=== PATIENT | female | born 1945 | race Caucasian/White ===

== ENCOUNTER → 2017-03-28 | Outpatient (CLI) | payer MEDICARE, OTHER | LOC: RT 08:00 | PROVIDERS: ATTEND Internal Medicine Cardiovascular Disease | DX: I48.0 Paroxysmal atrial fibrillation (principal) | CPT/HCPCS: 93005 ==

== ENCOUNTER 2017-04-07 14:51 | Outpatient (CLI) | payer MEDICARE, OTHER | END 2017-04-07 14:52 | disposition home or self-care (01) | LOC: RT.S 14:51 | PROVIDERS: ATTEND Internal Medicine Cardiovascular Disease | DX: I48.0 Paroxysmal atrial fibrillation (principal) | CPT/HCPCS: 93005 ==

== ENCOUNTER 2017-04-28 15:25 | Outpatient (CLI) | payer MEDICARE, OTHER | END 2017-04-28 15:26 | disposition critical access hospital (66) | LOC: EMS 15:25 | PROVIDERS: ATTEND Surgery | DX: R55 Syncope and collapse (principal) | CPT/HCPCS: A0425; A0427 ==

== ENCOUNTER 2017-04-28 16:08 | Inpatient (IN) | payer MEDICARE, OTHER ==
--- NOTE | 2017-04-28 16:46 | ED Physician Documentation ---
PD HPI SYNCOPE - Stated complaint Stated Complaint: AFIB - Chief complaint Chief Complaint: General - History obtained from History obtained from: Patient, Family, EMS - History of Present Illness Witnessed: Witnessed Timing - onset: Today Duration: Minutes (3-4) Preceding symptoms: None Associated symptoms: No: Seizure, Incontinant of urine, Incontinant of stool, Headache, Vision changes, Chest pain, Palpitations, Diaphoresis, Dyspnea, Nausea / vomiting Contributing factors: Recent med change (metoprolol increased 2 weeks ago) Injury occurred: No: Fell, Head injury, Neck injury Pain level max: 0 Pain level now: 0 Similar symptoms before: Diagnosis (one syncopal event in the past. states vasovagal.) Recently seen: Not recently seen - Additional information Additional information: Patient is a 71-year-old female who presents to the emergency department after getting up from a nap today, feeling slightly lightheaded at that time. Went into the kitchen with her was sitting at a chair when she had a syncopal event. This lasted 3-4 minutes. No prodrome. Has only passed out once before. She recently had her metoprolol increased. Review of Systems Ten Systems: 10 systems reviewed and negative Constitutional: denies: Fever, Chills Nose: denies: Rhinorrhea / runny nose, Congestion Throat: denies: Sore throat Cardiac: denies: Chest pain / pressure Respiratory: denies: Dyspnea, Cough GI: denies: Nausea, Vomiting, Diarrhea : denies: Dysuria Skin: denies: Rash Musculoskeletal: denies: Neck pain, Back pain Neurologic: denies: Focal weakness, Numbness, Headache PD PAST MEDICAL HISTORY - Past Medical History Past Medical History: Yes Cardiovascular: Hypertension, Atrial fibrillation Endocrine/Autoimmune: HyPOthyroidism - Past Surgical History Past Surgical History: Yes General: Cholecystectomy Ortho: Carpal Tunnel 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 - Present Medications Home Medications: Ambulatory Orders Medication Instructions Recorded Confirmed Levothyroxine [Synthroid] 50 mcg PO DAILY 05/05/14 04/28/17 Apixaban [Eliquis] 5 mg PO BID 04/28/17 04/28/17 Furosemide [Lasix] 20 mg PO DAILY 04/28/17 04/28/17 Lisinopril 2.5 mg PO DAILY 04/28/17 04/28/17 Metoprolol Tartrate 100 mg PO BID 04/28/17 04/28/17 Sotalol HCl [Sotalol AF] 120 mg PO BID 04/28/17 04/28/17 - Allergies Allergies/Adverse Reactions: Allergies Allergy/AdvReac Type Severity Reaction Status Date / Time amoxicillin Allergy Hives Verified 04/28/17 19:23 - Living Situation Living Situation: reports: With family Living Arrangement: reports: At home - Social History Does the pt smoke?: No Smoking Status: Never smoker Does the pt drink ETOH?: Yes Does the pt have substance abuse?: No - Family History Family history: reports: Non contributory - Immunizations Immunizations are current?: Yes PD ED PE NORMAL - Vitals Vital signs reviewed: Yes - General General: Alert and oriented X 3, Well developed/nourished - HEENT HEENT: PERRL, Moist mucous membranes - Neck Neck: Supple, no meningeal sign - Cardiac Cardiac: Strong equal pulses, Other (irregularly irregular) - Respiratory Respiratory: No respiratory distress, Clear bilaterally - Abdomen Abdomen: Soft, Non tender, Non distended - Back Back: No spinal TTP - Derm Derm: Warm and dry, No rash - Extremities Extremities: No edema, No calf tenderness / cord - Neuro Neuro: Alert and oriented X 3 - Psych Psych: Normal mood, Normal affect Results - Vitals Vitals: Vital Signs - 24 hr 04/28/17 04/28/17 04/28/17 16:14 17:43 17:46 Temperature 36.9 C Heart Rate 126 H 123 H 94 Respiratory 14 16 Rate Blood Pressure 114/66 116/73 91/47 L O2 Saturation 99 97 04/28/17 04/28/17 18:11 19:11 Temperature Heart Rate 90 94 Respiratory 20 Rate Blood Pressure 103/63 122/78 O2 Saturation 100 97 Oxygen O2 Source Room air - EKG (time done) 1651 Rate: Rate (enter#) (143) Rhythm: Atrial fibrillation (w RVR) [place]: Normal QRS: Normal Ischemia: Non specific changes Computer interpretation: Agree with computer - Labs Labs: Laboratory Tests 04/28/17 04/28/17 04/28/17 16:36 16:36 16:36 WBC 5.8 RBC 4.16 L Hgb 14.7 Hct 43.9 MCV 105.6 H MCH 35.3 H MCHC 33.4 RDW 13.4 Plt Count 158 MPV 8.2 Neut # 3.5 Lymph # 1.7 [place] # 0.4 Eos # 0.1 Baso # 0.1 Absolute Nucleated RBC 0.00 Nucleated RBCs 0.0 Sodium 143 Potassium 4.4 Chloride 108 Carbon Dioxide 25 Anion Gap 10.0 BUN 22 H Creatinine 0.7 Estimated GFR (MDRD) 83 L Glucose 88 Calcium 9.3 Phosphorus Magnesium Total Bilirubin 0.8 AST 80 H ALT 36 Alkaline Phosphatase 66 Troponin I < 0.04 Total Protein 7.7 Albumin 4.1 Globulin 3.6 Albumin/Globulin Ratio 1.1 Lipase 46 Urine Color Urine Clarity Urine pH Ur Specific [place] Urine Protein Urine Glucose (UA) Urine Ketones Urine Occult Blood Urine Nitrite Urine Bilirubin Urine Urobilinogen Ur Leukocyte Esterase Ur Microscopic Review Urine Culture Comments Ethyl Alcohol 143.1 04/28/17 04/28/17 16:36 16:43 WBC RBC Hgb Hct MCV MCH MCHC RDW Plt Count MPV Neut # Lymph # [place] # Eos # Baso # Absolute Nucleated RBC Nucleated RBCs Sodium Potassium Chloride Carbon Dioxide Anion Gap BUN Creatinine Estimated GFR (MDRD) Glucose Calcium Phosphorus 3.2 Magnesium 1.6 L Total Bilirubin AST ALT Alkaline Phosphatase Troponin I Total Protein Albumin Globulin Albumin/Globulin Ratio Lipase Urine Color YELLOW Urine Clarity CLEAR Urine pH 6.0 Ur Specific [place] 1.010 Urine Protein NEGATIVE Urine Glucose (UA) NEGATIVE Urine Ketones NEGATIVE Urine Occult Blood TRACE-LYSE Urine Nitrite NEGATIVE Urine Bilirubin NEGATIVE Urine Urobilinogen 0.2 (NORMAL) Ur Leukocyte Esterase NEGATIVE Ur Microscopic Review NOT INDICATED Urine Culture Comments NOT INDICATED Ethyl Alcohol - Rads (name of study) cxr Radiology: Prelim report reviewed, EMP read contemporaneously, See rad report ( normal) PD MEDICAL DECISION MAKING - ED course Complexity details: reviewed results, re-evaluated patient, considered differential, d/w patient, d/w family, d/w automotive consultant ED course: Patient is a 71-year-old female who presents to the emergency department after a syncopal event today. States she was unconscious for 3-4 minutes. No prodrome. She does drink alcohol nightly, but states had no alcohol today. She does have a nearly double the legal limit blood alcohol level here. She is also on sotalol, concerned that she could potentially have a lethal arrhythmia causing her syncopal events. Discussed the case with the hospitalist will place the patient on telemetry in the hospital. This document was made in part using voice recognition software. While efforts are made to proofread this document, sound alike and grammatical errors may occur. Atrial fibrillation with rapid ventricular response greatly improved with Cardizem. Departure - Departure Disposition: 66 [facility] DC/Xfer Clinical Impression: Atrial fibrillation with RVR Syncope Qualifiers: Syncope type: unspecified Qualified Code(s): R55 - Syncope and collapse Cardiomyopathy Qualifiers: Cardiomyopathy type: unspecified Qualified Code(s): I42.9 - Cardiomyopathy, unspecified Condition: Good Discharge Date/Time: 04/28/17 20:30
[2017-04-28 16:57] LABS: ALBUMIN/GLOBULIN RATIO 1.1 (1.0-2.2); BILIRUBIN,TOTAL 0.8 mg/dL (0.2-1.0); CALCIUM 9.3 mg/dL (8.5-10.3); CREATININE 0.7 mg/dL (0.4-1.0); POTASSIUM 4.4 mmol/L (3.5-5.0); TOTAL PROTEIN 7.7 g/dL (6.7-8.2)
[2017-04-28 17:09] LABS: BILIRUBIN,URINE NEGATIVE (NEGATIVE); UA CHARGE (STRIP ONLY) YES; UR CULTURE IF IND NOT INDICATED
[2017-04-28 17:16] LABS: BASOPHILS # (AUTO) 0.1 10^3/uL (0.0-0.1); BASOPHILS % (AUTO) 0.9 %; EOSINOPHILS # (AUTO) 0.1 10^3/uL (0.0-0.7); EOSINOPHILS % (AUTO) 2.2 %; HCT - HEMATOCRIT 43.9 % (37.0-47.0); HGB - HEMOGLOBIN 14.7 g/dL (12.0-16.0); LYMPHOCYTES # (AUTO) 1.7 10^3/uL (1.5-3.5); LYMPHOCYTES % (AUTO) 29.5 %; MEAN CORPUSCULAR HEMOGLOBIN 35.3 pg (27.0-31.0); MEAN CORPUSCULAR HGB CONC 33.4 g/dL (32.0-36.0); MEAN CORPUSCULAR VOLUME 105.6 fL (81.0-99.0); MEAN PLATELET VOLUME 8.2 fL (7.9-10.8); MONOCYTES # (AUTO) 0.4 10^3/uL (0.0-1.0); MONOCYTES % (AUTO) 7.2 %; NEUTROPHILS # (AUTO) 3.5 10^3/uL (1.5-6.6); NEUTROPHILS % (AUTO) 60.2 %; RED BLOOD COUNT 4.16 10^6/uL (4.20-5.40); RED CELL DISTRIBUTION WIDTH 13.4 % (12.0-15.0); UNCORRECTED WHITE BLOOD COUNT 5.8 x10^3/uL; WHITE BLOOD COUNT 5.8 x10^3/uL (4.8-10.8)
--- NOTE | 2017-04-28 17:19 | XRAY Preliminary Report ---
Exam: XR Chest 1 View IMPRESSION: Normal single view chest. [facility] SITE ID: [id number]
--- NOTE | 2017-04-28 17:21 | XRAY Report ---
EXAM: CHEST RADIOGRAPHY EXAM DATE: 04/28/2017 05:03 PM. CLINICAL HISTORY: Syncope. COMPARISON: 12/23/2012. TECHNIQUE: 1 view. FINDINGS: Lungs/Pleura: No focal opacities evident. No pleural effusion. No pneumothorax. Mediastinum: Within exam limitations, cardiomediastinal contour is normal. Other: None. IMPRESSION: Normal single view chest. [facility] Referring Provider Line: [phone] SITE ID: [id number]
[2017-04-28] MEDS ORDERED: diltiaZEM INJ 5 MG/ML VIAL IVP STA (17:22)
[2017-04-28] MEDS ORDERED: SODIUM CHLORIDE 0.9% 1,000 ML IV ONE ×2 (17:29)
[2017-04-28] MEDS ORDERED: diltiaZEM INJ 5 MG/ML VIAL ONE (17:36)
[2017-04-28 17:56] LABS: MAGNESIUM 1.6 mg/dL (1.7-2.8); PHOSPHORUS 3.2 mg/dL (2.5-4.6)
[2017-04-28] MEDS ORDERED: LORazepam 0.5 MG TABLET PO PRN (20:19)
[2017-04-28] MEDS ORDERED: SODIUM CHLORIDE FLUSH 0.9% 10 ML SYRINGE IVP ONE (21:12)
[2017-04-28] MEDS: METOPROLOL TARTRATE 50 MG TABLET PO SCH (21:15)
[2017-04-28] MEDS ORDERED: APIXABAN 2.5 MG TABLET PO ONE (21:28)
[2017-04-29] MEDS: LEVOTHYROXINE 25 MCG TABLET PO SCH (06:03)
[2017-04-29 06:36] LABS: BASOPHILS % (AUTO) 0.8 %; EOSINOPHILS # (AUTO) 0.1 10^3/uL (0.0-0.7); HCT - HEMATOCRIT 42.7 % (37.0-47.0); HGB - HEMOGLOBIN 14.3 g/dL (12.0-16.0); LYMPHOCYTES # (AUTO) 1.4 10^3/uL (1.5-3.5); LYMPHOCYTES % (AUTO) 27.4 %; MEAN CORPUSCULAR HEMOGLOBIN 35.2 pg (27.0-31.0); MEAN CORPUSCULAR HGB CONC 33.5 g/dL (32.0-36.0); MEAN CORPUSCULAR VOLUME 105.2 fL (81.0-99.0); MONOCYTES # (AUTO) 0.5 10^3/uL (0.0-1.0); MONOCYTES % (AUTO) 10.1 %; NEUTROPHILS % (AUTO) 59.7 %; RED BLOOD COUNT 4.06 10^6/uL (4.20-5.40); RED CELL DISTRIBUTION WIDTH 13.1 % (12.0-15.0); UNCORRECTED WHITE BLOOD COUNT 5.1 x10^3/uL; WHITE BLOOD COUNT 5.1 x10^3/uL (4.8-10.8)
[2017-04-29 06:45] LABS: CALCIUM 8.8 mg/dL (8.5-10.3); CREATININE 0.6 mg/dL (0.4-1.0); MAGNESIUM 1.6 mg/dL (1.7-2.8); POTASSIUM 4.2 mmol/L (3.5-5.0)
[2017-04-29] MEDS: METOPROLOL TARTRATE 50 MG TABLET PO SCH ×2 (08:05→20:12)
[2017-04-29] MEDS: APIXABAN 2.5 MG TABLET PO SCH ×2 (08:05→20:12)
[2017-04-29] MEDS: diltiaZEM CD 120 MG CAPSULE PO SCH (09:40)
[2017-04-29] MEDS ORDERED: MAGNESIUM SULFATE 2 GRAM 50 ML IV SCH (18:00)
--- NOTE | 2017-04-29 18:11 | PROVIDER PROGRESS NOTE ---
Assessment/Plan - Problem List (1) Syncope Qualifiers: Syncope type: unspecified Qualified Code(s): R55 - Syncope and collapse Assessment/Plan: Echo showed normal LVEF, moderate pulmonary HTN with PA pressure 52 mmHg (and Pt never smoked). [place] has been ruled out with normal trops x 3. No orthostatic VS available yet. I will try to contact her Case Fitter re: recent med changes and plan. Assess for symptoms with ambulation if no orthostasis present. Replace Mg. (2) Atrial fibrillation with RVR Assessment/Plan: I will try to contact Pt's Case Fitter re: this event and the antiarrhythmics she was on (high doses of B-lucia + high dose of Sotalol ). Continue B-lucia and Cardizem and adjust dose carefully for rate control. Continue telemetry. (3) Alcohol abuse Assessment/Plan: Long-term Hx of this is suspected, given her high AST/ALT ratio, hypomagnesemia and elevated MCV. Pt has not shown evidence of DTs or withdrawal. Continue to monitor. (4) Pulmonary HTN Assessment/Plan: A VQ scan could be considered to check for PE, since she never smoked, as a PE could have caused syncope, however this has very low probability since the Pt has no SOB or Hx of recent travel and unlikely if she is fully anticoagulated on Eliquis, unless Pt was not compliant with her Eliquis. She may have had 2nd hand smoke exposure or have primary pulmonary HTN, which can be evaluated as an outpatient, since she has no respiratory complaints currently. - Current Meds Current Meds: Current Medications Generic Name Dose Route Start Last Admin Trade Name Giovany PRN Reason Stop Dose Admin Apixaban 5 mg 04/29/17 09:00 04/29/17 08:05 Eliquis PO 5 mg BID ANDERSON Administration Diltiazem HCl 120 mg 04/29/17 10:00 04/29/17 09:40 Cardizem Cd PO 120 mg DAILY ANDERSON Administration Magnesium Sulfate 50 mls @ 50 mls/hr 04/29/17 18:00 04/29/17 17:47 Magnesium Sulfate IV 04/29/17 19:00 50 mls/hr ONCE ANDERSON Administration Levothyroxine Sodium 50 mcg 04/29/17 07:00 04/29/17 06:03 Synthroid PO 50 mcg QDAC ANDERSON Administration Lorazepam 0.5 mg 04/28/17 20:19 04/29/17 00:04 Ativan PO 0.5 mg Q6H PRN Administration Alcohol Withdrawal Metoprolol Tartrate 100 mg 04/28/17 21:00 04/29/17 08:05 Lopressor PO 100 mg BID ANDERSON Administration - Lab Result Fish Bone Diagrams: 04/29/17 06:24 04/30/17 03:40 - Additional Planning My Orders: My Active Orders 04/28/17 19:55 Telemetry (24 Hour) [RC] Q4HR 04/28/17 20:17 Miscellaenous Nursing Order [RC] QSHIFT 04/28/17 20:19 LORazepam [Ativan] 0.5 mg PO Q6H PRN 04/28/17 21:00 Metoprolol Tartrate [Lopressor] 100 mg PO BID 04/29/17 07:00 Levothyroxine [Synthroid] 50 mcg PO QDAC 04/29/17 09:00 Echo Transthoracic Complete [ECHO] Routine Apixaban [Eliquis] 5 mg PO BID 04/29/17 10:00 [id number] CD [Cardizem Cd] 120 mg PO DAILY 04/29/17 18:00 Magnesium Sulfate 2 Gram [Magnesium Sulfate] 50 ml IV ONCE 04/29/17 Breakfast DIET [Regular Diet] [DIET] Objective Vital Signs: Vital Signs - 24 hr 04/28/17 04/28/17 04/28/17 20:15 20:45 21:00 Temperature 36.8 C Heart Rate 103 H Heart Rate [ 130 H 112 H Monitoring electrodes] Respiratory 16 18 17 Rate Blood Pressure 116/67 Blood Pressure 129/102 H 108/74 [Right Brachial artery] O2 Saturation 98 97 97 04/28/17 04/28/17 04/28/17 21:15 21:30 22:00 Temperature Heart Rate Heart Rate [ 103 H 109 H 102 H Monitoring electrodes] Respiratory 16 17 21 Rate Blood Pressure 108/74 Blood Pressure 143/81 H 124/86 H 142/118 H [Right Brachial artery] O2 Saturation 97 97 97 04/28/17 04/28/17 04/29/17 22:24 23:18 00:00 Temperature 36.6 C 97.8 C H 35.9 C L Heart Rate Heart Rate [ 113 H 113 H 108 H Monitoring electrodes] Respiratory 22 21 17 Rate Blood Pressure Blood Pressure 136/94 H 128/85 H 128/94 H [Right Brachial artery] O2 Saturation 99 97 98 04/29/17 04/29/17 04/29/17 01:00 02:00 03:00 Temperature Heart Rate Heart Rate [ 105 H 110 H 108 H Monitoring electrodes] Respiratory 17 15 16 Rate Blood Pressure Blood Pressure 105/80 109/80 118/79 [Right Brachial artery] O2 Saturation 97 98 97 04/29/17 04/29/17 04/29/17 04:00 05:00 06:00 Temperature 37.2 C Heart Rate Heart Rate [ 103 H 99 101 H Monitoring electrodes] Respiratory 17 17 10 L Rate Blood Pressure Blood Pressure 88/72 L 115/79 121/88 H [Right Brachial artery] O2 Saturation 98 98 98 04/29/17 04/29/17 04/29/17 07:00 08:00 08:05 Temperature Heart Rate Heart Rate [ 81 80 Monitoring electrodes] Respiratory 18 16 Rate Blood Pressure 122/97 H Blood Pressure 129/86 H 122/97 H [Right Brachial artery] O2 Saturation 100 95 04/29/17 04/29/17 12:00 16:00 Temperature 37.0 C 36.6 C Heart Rate Heart Rate [ 100 99 Monitoring electrodes] Respiratory 14 21 Rate Blood Pressure Blood Pressure 115/85 H 114/87 H [Right Brachial artery] O2 Saturation 93 99 Oxygen O2 Source Room air I&O (Last 24 Hrs): Intake and Output Totals x24h 04/27/17 04/28/17 04/29/17 23:59 23:59 23:59 Intake Total 300 2520 Output Total 200 970 Balance 100 1550 - Results Results: Laboratory Results WBC 5.1 x10^3/uL (4.8-10.8) 04/29/17 06:24 RBC 4.06 10^6/uL (4.20-5.40) L 04/29/17 06:24 Hgb 14.3 g/dL (12.0-16.0) 04/29/17 06:24 Hct 42.7 % (37.0-47.0) 04/29/17 06:24 MCV 105.2 fL (81.0-99.0) H 04/29/17 06:24 MCH 35.2 pg (27.0-31.0) H 04/29/17 06:24 MCHC 33.5 g/dL (32.0-36.0) 04/29/17 06:24 RDW 13.1 % (12.0-15.0) 04/29/17 06:24 Plt Count 148 10^3/uL (130-450) 04/29/17 06:24 MPV 8.0 fL (7.9-10.8) 04/29/17 06:24 Neut # 3.0 10^3/uL (1.5-6.6) 04/29/17 06:24 Lymph # 1.4 10^3/uL (1.5-3.5) L 04/29/17 06:24 [place] # 0.5 10^3/uL (0.0-1.0) 04/29/17 06:24 Eos # 0.1 10^3/uL (0.0-0.7) 04/29/17 06:24 Baso # 0.0 10^3/uL (0.0-0.1) 04/29/17 06:24 Absolute Nucleated RBC 0.00 x10^3/uL 04/29/17 06:24 Nucleated RBCs 0.0 /100WBC 04/29/17 06:24 Sodium 140 mmol/L (135-145) 04/29/17 06:24 Potassium 4.2 mmol/L (3.5-5.0) 04/29/17 06:24 Chloride 107 mmol/L (101-111) 04/29/17 06:24 Carbon Dioxide 24 mmol/L (21-32) 04/29/17 06:24 Anion Gap 9.0 (6-13) 04/29/17 06:24 BUN 20 mg/dL (6-20) 04/29/17 06:24 Creatinine 0.6 mg/dL (0.4-1.0) 04/29/17 06:24 Estimated GFR (MDRD) 99 (>89) 04/29/17 06:24 Glucose 89 mg/dL (70-100) 04/29/17 06:24 Calcium 8.8 mg/dL (8.5-10.3) 04/29/17 06:24 Phosphorus 3.2 mg/dL (2.5-4.6) 04/28/17 16:36 Magnesium 1.6 mg/dL (1.7-2.8) L 04/29/17 06:24 Total Bilirubin 0.8 mg/dL (0.2-1.0) 04/28/17 16:36 AST 80 IU/L (10-42) H 04/28/17 16:36 ALT 36 IU/L (10-60) 04/28/17 16:36 Alkaline Phosphatase 66 IU/L (42-121) 04/28/17 16:36 Troponin I < 0.04 ng/mL (<0.49) 04/29/17 06:24 Total Protein 7.7 g/dL (6.7-8.2) 04/28/17 16:36 Albumin 4.1 g/dL (3.2-5.5) 04/28/17 16:36 Globulin 3.6 g/dL (2.1-4.2) 04/28/17 16:36 Albumin/Globulin Ratio 1.1 (1.0-2.2) 04/28/17 16:36 Lipase 46 U/L (22-51) 04/28/17 16:36 TSH 3.87 uIU/mL (0.34-5.60) 04/29/17 06:24 Urine Color YELLOW 04/28/17 16:43 Urine Clarity CLEAR (CLEAR) 04/28/17 16:43 Urine pH 6.0 PH (5.0-7.5) 04/28/17 16:43 Ur Specific [place] 1.010 (1.002-1.030) 04/28/17 16:43 Urine Protein NEGATIVE mg/dL (NEGATIVE) 04/28/17 16:43 Urine Glucose (UA) NEGATIVE mg/dL (NEGATIVE) 04/28/17 16:43 Urine Ketones NEGATIVE mg/dL (NEGATIVE) 04/28/17 16:43 Urine Occult Blood TRACE-LYSE (NEGATIVE) 04/28/17 16:43 Urine Nitrite NEGATIVE (NEGATIVE) 04/28/17 16:43 Urine Bilirubin NEGATIVE (NEGATIVE) 04/28/17 16:43 Urine Urobilinogen 0.2 (NORMAL) E.U./dL (NORMAL) 04/28/17 16:43 Ur Leukocyte Esterase NEGATIVE (NEGATIVE) 04/28/17 16:43 Ur Microscopic Review NOT INDICATED 04/28/17 16:43 Urine Culture Comments NOT INDICATED 04/28/17 16:43 Ethyl Alcohol 143.1 mg/dL 04/28/17 16:36
[2017-04-29] MEDS ORDERED: SODIUM CHLORIDE FLUSH 0.9% 10 ML SYRINGE IVP ONE ×2 (18:56→20:25)
--- NOTE | 2017-04-29 19:55 | HISTORY & PHYSICAL EXAMINATION ---
DATE OF ADMISSION: 04/28/2017 ADMISSION COMPLAINT: Syncope. HISTORY OF THE PRESENT ILLNESS: This is a 71-year-old white female with a history of atrial fibrillat ion, syncope that occurred in 2012 that the states was from "vasovagal". The patient has a hi story of heavy alcohol intake. She admits to drinking at least 3 vodka mixed drinks per day for many years. The patient reports that her atrial fibrillation was managed by medication adjustment. She has been on Eliquis and metoprolol and recently was given sotalol as well. The patient presents with syncope. She was brought in by EMS. The patient awoke in the a.m. and took her morning medications at approximately 8:30, had almost no breakfast, was tired and went back to be d. Then, when she awoke many hours later in the early afternoon, she noticed that she was "foggy" and walked to the kitchen where she sat down and was speaking with a friend and her . While sitti ng in the chair, she suddenly stared straight ahead without responding to her name and slowly her hea d slumped, as well as her body leaned forward. The caught her and held her upright in the lara ir while the friend called 911. The EMS responder told the to put her on the ground and advis ed checking for her pulse and respirations, which the patient did have. The thinks he remembe rs that the 's eyes were open the entire time of her syncope. On the floor, she finally started t o awaken and she can remember awaking on the floor. There was apparently no prodrome before this even t and no seizure activity. She was incontinent of stool and bowel when she was on the floor. The esthetician/skin therapist arrived, and initial vital signs showed a blood pressure of approximately 100/60 and a heart rate of approximately 80 to 90. On the ambulance run sheet, there was evidence that she did drop her systoli c blood pressure to approximately 80. The patient remembers the entire ride via ambulance and her [facility] room stay. REVIEW OF SYSTEMS: There has been no recent travel, flu-like symptoms, fever, cough, chest pain. She does admit that she can feel when she is in atrial fibrillation with feelings of "palpitations". When she came to the emergency room, she was in atrial fibrillation and she does currently feel it. SOCIAL HISTORY: Includes heavy alcohol intake, as above, and she never smoked. She denies any drug ab use. PAST SURGICAL HISTORY: Past surgeries are cholecystectomy, carpal tunnel surgery, and sectio n. ALLERGIES: AMOXICILLIN; THAT CAUSED HIVES. MEDICATIONS AT HOME 1. Synthroid. 2. Eliquis 5 mg p.o. b.i.d. 3. Lasix 20 mg p.o. daily. 4. Lisinopril 2.5 mg p.o. daily. 5. Metoprolol tartrate 100 mg p.o. b.i.d. 6. Sotalol 120 mg p.o. b.i.d. FAMILY HISTORY: Noncontributory. PHYSICAL EXAMINATION GENERAL: A white female who is sitting in a gurney with head of bed elevated and appears disheveled, but she is in no respiratory distress. VITAL SIGNS: Blood pressure 114/66 with a pulse of 126, atrial fibrillation, and afebrile. Oxygen sat uration 100% on room air. HEAD, EYES, EARS, NOSE, AND THROAT: Injected sclerae and rubor of her cheeks and moist mucosa. She cuenca s no JVD in vertical body position. CHEST: Normal breath sounds. HEART: Sounds are normal. There is no murmur, gallop, or rub. ABDOMEN: Soft, nontender, not distended, with normal bowel sounds. EXTREMITIES: No clubbing, cyanosis or edema. She has no liver flap. NEUROLOGIC: Grossly intact. LABORATORY DATA: White count 5.8, hemoglobin 14.7, platelet count normal. Sodium 143, potassium 4.4, BUN 22, creatinine 0.7, bilirubin normal, AST 80, ALT 36, troponin less than 0.04, albumin 4.1. Chest x-ray normal. EKG: Atrial fibrillation, nonspecific ST-T changes. Rate is currently 80 on the EKG. IMPRESSION AND DIAGNOSES 1. Paroxysmal atrial fibrillation. 2. Syncope, witnessed. 3. Intermittent hypotension. 4. Alcohol abuse with evidence of high MCV and elevated AST but normal liver function with normal PT/ INR. PLAN: Continue with heart rate slowing medications using metoprolol and diltiazem. Hold the sotalol u ntil it is determined if she has cardiomyopathy or any history of malignant dysrhythmia such as torsa de by obtaining records from her fisheries manager. Obtain orthostatic vital signs. Check troponins x3 to rule out an AL as a cause of the syncope. Obtain an echo to check her LV ejection fraction and pulmon [place] pressure. Begin hydration with saline. Treat with thiamine and banana bag for nutritional deficie ncies that are associated with alcohol abuse. DT precautions and Ativan p.r.n. for withdrawal will be ordered. Continue with telemetry to rule out other dysrhythmias that may have caused this syncopal e pisode. JOB #: [id number] EXT JOB #:[id number]
[2017-04-30 04:46] LABS: CREATININE 0.6 mg/dL (0.4-1.0); MAGNESIUM 1.6 mg/dL (1.7-2.8); POTASSIUM 3.9 mmol/L (3.5-5.0)
[2017-04-30] MEDS ORDERED: POTASSIUM PHOSPHATE 21 MMOL in SODIUM CHLORIDE 0.9% 250 ML IV ONE (05:22)
[2017-04-30] MEDS ORDERED: POTASSIUM PHOSPHATE 15 MMOL in SODIUM CHLORIDE 0.9% 250 ML IV ONE (05:22)
[2017-04-30] MEDS ORDERED: MAGNESIUM SULFATE 2 GRAM 50 ML IV SCH ×2 (05:22→06:00)
[2017-04-30] MEDS ORDERED: POTASSIUM CHLORIDE 20 MEQ TABLET PO ONE (05:22)
[2017-04-30] MEDS ORDERED: POTASSIUM CHLOR 10 MEQ/100 ML 100 ML IV SCH (06:00)
[2017-04-30] MEDS ORDERED: POTASSIUM PHOSPHATE 15 MMOL in SODIUM CHLORIDE 0.9% 250 ML IV SCH (06:00)
[2017-04-30] MEDS ORDERED: SODIUM CHLORIDE FLUSH 0.9% 10 ML SYRINGE IVP ONE (06:09)
[2017-04-30] MEDS ORDERED: MAGNESIUM OXIDE 400 MG TABLET PO ONE (06:10)
[2017-04-30] MEDS: MAGNESIUM OXIDE 400 MG TABLET PO SCH ×2 (06:15→12:13)
[2017-04-30] MEDS: LEVOTHYROXINE 25 MCG TABLET PO SCH (06:15)
[2017-04-30] MEDS ORDERED: POTASSIUM CHLORIDE 20 MEQ/15 ML UDC PO SCH (09:00)
[2017-04-30] MEDS: diltiaZEM CD 120 MG CAPSULE PO SCH (09:26)
[2017-04-30] MEDS: APIXABAN 2.5 MG TABLET PO SCH (09:26)
[2017-04-30] MEDS: METOPROLOL TARTRATE 50 MG TABLET PO SCH (09:26)
[2017-04-30 11:11] VITALS: BP 105/78
--- NOTE | 2017-04-30 14:35 | Discharge Plan ---
Discharge Plan Disposition: 01 Home, Self Care Condition: Fair Diet: Regular Activity Restrictions: No Restrictions Shower Restrictions: No Driving Restrictions: Yes (No driving for 6 mos without a fainting spell) Weight Bearing: Full Weight Additional Instructions or Follow Up instructions: Resume all your medictions except the Sotalol Follow-up with your Title Lawyer, [place], to determine: 1) Should you continue both Metoprolol and Sotalol 2) When can you resume driving No Smoking: If you smoke, Please STOP! Call for help.
--- NOTE | 2017-05-05 13:41 | DISCHARGE SUMMARY ---
DATE OF ADMISSION: 04/28/2017 DATE OF DISCHARGE: 04/30/2017 PRIMARY CARE PHYSICIAN: Zoe Baptiste MD BLENDER SNUFF: Dia Perez MD HISTORY OF PRESENT ILLNESS: This is a 71-year-old white female with history of atrial fibrillation (unknown if this is paroxysmal), prior syncope that occurred in 2012, and the states this was from "vasovagal" syncope. The patient has a history of hypothyroidism on Synthroid, hypertension on medications. The patient presents with an episode of syncope. She had awoken in the morning but was tired and went back to sleep after taking her medications. She woke up many hours later in the afternoon and walked from the bedroom to the kitchen and felt "foggy." She sat down and then was witnessed to be just staring straight ahead and then slumping her head and leaning her body forward. The caught her and held her upright in the chair and a friend called 911. The EMS responder told the to place her on the ground and talked him through management. The patient apparently had spontaneous respirations and a pulse. EMS did arrive at which point she was slowly awakening, and her initial blood pressure was approximately 100 systolic and heart rate approximately 80. During the transfer, there is evidence that she dropped her pressure to 80 systolic. The patient had no further episodes of syncope and was admitted for workup. SOCIAL HISTORY: Significant for heavy alcohol intake (3 vodka drinks per day for many years). She never smoked. PAST SURGERIES: Cholecystectomy, carpal tunnel surgery, . MEDICATIONS BEFORE ADMISSION Were 1. Synthroid. 2. Eliquis. 3. Lasix. 4. Lisinopril. 5. Metoprolol. 6. Sotalol. REVIEW OF SYSTEMS The patient reports that her sotalol was just recently initiated at 120 mg p.o. b.i.d. and the previous metoprolol dose was not changed, and she was taking 100 mg p.o. b.i.d. She states she was compliant with her oral anticoagulant of Eliquis 5 mg p.o. b.i.d. ADMISSION PHYSICAL EXAMINATION Was only remarkable for blood pressure of 114/66 and a pulse of 126 and atrial fibrillation, and she appeared fatigued. The rest of the physical exam was unremarkable. ADMISSION LABORATORY DATA: Admission labs were within normal limits. Chest x-ray within normal limits. EKG showed atrial fibrillation and nonspecific ST-T changes. The rate of the EKG was 80. HOSPITAL COURSE: The patient received hydration for her low blood pressure. Her metoprolol and sotalol and Lasix were discontinued. The patient remained in atrial fibrillation during the entire hospitalization. The plan was for rate control, which was accomplished with medications orally. There was no evidence of any alcohol withdrawal. (There was lab evidence of significant history of alcohol intake with a high MCV and an elevated AST but normal INR and normal AST and ALT). An echo was done that showed normal LV function and mild pulmonary hypertension with a PA pressure of 49 mmHg. She was given thiamine and folate and electrolytes for treatment of her heavy alcohol intake. DISCHARGE DIAGNOSES 1. Persistent atrial fibrillation, initially rapid. Rate was controlled with medication adjustments. 2. Syncope, likely due to hypotension, from volume depletion as evidenced by low BP and tachycardia, which was managed with volume replacement. 3. Mild pulmonary hypertension on echocardiogram. 4. Heavy alcohol intake history. RADIOLOGY STUDIES AND TESTS THAT ARE PERTINENT: EKG with atrial fibrillation and a rapid rate and nonspecific EKG changes. Echo, result as above. Lab tests showing elevated MCV and AST to ALT ratio. PHYSICAL EXAMINATION ON DISCHARGE Showed atrial fibrillation with rates in the 70s. Normal blood pressure withoutb orthostasis. Her exam was otherwise unremarkable. DIETARY RECOMMENDATIONS: No restrictions. ACTIVITY RECOMMENDATIONS: As tolerated. FOLLOWUP APPOINTMENTS/RECOMMENDATIONS: Followup with primary care physician and with her health records technology teacher, Dr. Perez, for decisions regarding combination therapy for atrial fibrillation with rate control versus chemical versus electrical cardioversion. Continuation with Eliquis advised. MEDICATIONS AT THE TIME OF DISCHARGE 1. Eliquis 5 mg p.o. b.i.d. 2. Lisinopril 2.5 mg p.o. daily (decreased from 5 mg p.o. daily). 3. Metoprolol 100 mg p.o. in the a.m., 50 mg p.o. in the p.m. 4. Sotalol 120 mg p.o. b.i.d. 5. Synthroid 100 mcg p.o. daily. 6. Multivitamin daily. 7. Zantac 150 mg p.o. b.i.d. 8. Ativan 0.5 mg p.r.n. TIME SPENT ON DISCHARGE: 60 minutes. JOB #: [id number] EXT JOB #:[id number] MTDD
== END 2017-04-30 15:15 | disposition home or self-care (01) | DRG 312 ==
LOC: EDUNIT# → ED 16:08 → ICU 19:38
PROVIDERS: ADMIT Internal Medicine; ATTEND Internal Medicine
DX: I48.91 Unspecified atrial fibrillation (principal); R55 Syncope and collapse; I42.9 Cardiomyopathy, unspecified; I48.1 Persistent atrial fibrillation; I95.9 Hypotension, unspecified; E86.9 Volume depletion, unspecified; I27.2 Other secondary pulmonary hypertension; F10.10 Alcohol abuse, uncomplicated; E83.42 Hypomagnesemia; E03.9 Hypothyroidism, unspecified; I10 Essential (primary) hypertension; Z79.01 Long term (current) use of anticoagulants; Z79.899 Other long term (current) drug therapy
CPT/HCPCS: 36415; 71010; 80048; 80053; 80320; 81001; 81003; 83690; 83735; 84100; 84443; 84484; 85025; 87086; 87150; 93005; 93306; 96361; 96374; 99285

== ENCOUNTER 2017-09-01 12:16 | Outpatient (CLI) | payer MEDICARE, OTHER | END 2017-09-01 12:17 | disposition short-term general hospital (02) | LOC: EMS 12:16 | PROVIDERS: ATTEND Surgery | DX: I48.91 Unspecified atrial fibrillation (principal) | CPT/HCPCS: A0170; A0425; A0427 ==

== ENCOUNTER 2018-12-04 08:13 | Outpatient (CLI) | payer MEDICARE, OTHER | END 2018-12-04 08:14 | disposition EMS.NT | LOC: EMS 08:13 | PROVIDERS: ATTEND Surgery | DX: R04.0 Epistaxis (principal) ==

== ENCOUNTER 2019-12-02 08:43 | Outpatient (CLI) | payer MEDICARE, OTHER | END 2019-12-02 08:44 | disposition short-term general hospital (02) | LOC: EMS 08:43 | PROVIDERS: ATTEND Surgery | DX: R11.2 Nausea with vomiting, unspecified (principal); R53.1 Weakness; R51 Headache | CPT/HCPCS: A0425; A0427 ==